=== PATIENT | female | born 1965 | race Caucasian/White ===

== ENCOUNTER → 2018-05-22 15:24 | Outpatient (CLI) | payer OTHER, MEDICAID, SELFPAY ==
--- NOTE | 2018-05-22 15:27 | DI.RAD.S_ITS ---
PROCEDURE: XR SHOULDER RT MIN 2V INDICATIONS: Right shoulder pain x1 year TECHNIQUE: 3 views of the shoulder were acquired. COMPARISON: None. FINDINGS: Bones: No fractures or dislocations. No suspicious bony lesions. Visualized ribs appear intact. Soft tissues: No suspicious soft tissue calcifications. 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 Dictated by: Amrit Hodge M.D. on 05/22/2018 at 15:48 Approved by: Amrit Hodge M.D. on 05/22/2018 at 15:48
== END ==
PROVIDERS: PCP Family Medicine; Visit Provider Family Medicine
DX: M25.511 Pain in right shoulder (principal)
CPT/HCPCS: 73030

== ENCOUNTER → 2018-06-17 13:38 | Outpatient (CLI) | payer OTHER, MEDICAID, SELFPAY ==
--- NOTE | 2018-06-17 | DI.MG.S_ITS ---
BILATERAL DIGITAL SCREENING MAMMOGRAM 3D/2D WITH CAD: 06/17/2018 CLINICAL: Routine screening. Comparison is made to exams dated: 06/23/2016 mammogram, 06/18/2015 mammogram, and 08/08/2012 mammogram - [facility]. There are scattered fibroglandular elements in both breasts. Current study was also evaluated with a Computer Aided Detection (CAD) system. There are benign calcifications in both breasts. No significant masses, calcifications, or other findings are seen in either breast. There has been no significant interval change. IMPRESSION: There is no mammographic evidence of malignancy. A 1 year screening mammogram is recommended. This exam was interpreted at Station ID: [id number]. NOTE: For mammograms, a report in lay terms will be sent to the patient. Approximately 15% of breast malignancies will not be visualized mammographically. In the management of a palpable breast mass, a negative mammogram must not discourage biopsy of a clinically suspicious lesion. Electronically Signed By: Ishmael bray/darlyn:06/17/2018 14:19:18 letter sent: Normal Exam ACR BI-RADS Category 2: Benign Finding(s) 3342F
== END ==
PROVIDERS: Family Provider Family Medicine; PCP Family Medicine; Visit Provider Family Medicine
DX: Z12.31 Encounter for screening mammogram for malignant neoplasm of breast (principal)
CPT/HCPCS: 77063; 77067

== ENCOUNTER → 2019-01-06 10:06 | Outpatient (CLI) | payer OTHER, MEDICAID, SELFPAY ==
[2019-01-06 10:31] LABS: Add Manual Diff / Slide Review NO; Basophils Absolute Auto 100 /uL (0-100); Basophils Percent Auto 1.3 % (0-2); Eosinophils Absolute Auto 200 /uL (0-450); Hematocrit 43.2 % (36-46); Lymphocytes Absolute Auto 1500 /uL (1100-4500); Lymphocytes Percent Auto 27.2 % (25-40); Mean Corpuscular HGB Conc 34.8 % (30-36); Mean Corpuscular Hemoglobin 33.2 PG (26-34); Mean Corpuscular Volume 95.6 fL (80-100); Monocytes Absolute Auto 400 /uL (0-900); Monocytes Percent Auto 7.4 % (3-14); Neutrophils Absolute Auto 3500 /uL (1500-7000); Neutrophils Percent Auto 61.1 % (50-75); Platelet Count 243 X10^3/uL (150-400); Red Blood Cell Count 4.52 X10^6/uL (4.0-5.2); Red Cell Distribution Width 12.1 % (11.6-14.8); White Blood Cell Count 5.7 X10^3/uL (4.5-11.0)
[2019-01-06 10:45] LABS: Alanine Aminotransferase 112 IU/L (9-52); Albumin 4.5 g/dL (3.5-5.0); Albumin Globulin Ratio 1.5 (1.0-2.8); Alkaline Phosphatase 102 U/L (38-126); Aspartate Aminotransferase 65 IU/L (14-36); BUN Creatinine Ratio 21.7 (6-22); Bilirubin Total 0.8 mg/dL (0.2-1.3); Blood Urea Nitrogen 13 mg/dL (7-17); Calcium 9.6 mg/dL (8.4-10.2); Carbon Dioxide 29 mmol/L (22-32); Chloride 105 mmol/L (98-107); Estimated Glomerular Filt Rate > 60.0 mL/min (>60); Globulin 3.1 g/dL (1.7-4.1); Glucose 90 mg/dL (70-100); HEMOLYSIS < 15 (0-50); Potassium 3.9 mmol/L (3.4-5.1); Sodium 143 mmol/L (137-145); Total Protein 7.6 g/dL (6.3-8.2)
[2019-01-06 11:41] LABS: TSH w/ Reflex to FT4 0.27 uIU/mL (0.47-4.68)
[2019-01-06 12:23] LABS: Free T4, Direct Thyroxine 0.76 ng/dL (0.78-2.19)
== END ==
PROVIDERS: PCP Family Medicine; Visit Provider Family Medicine
DX: N95.1 Menopausal and female climacteric states (principal); R53.83 Other fatigue; R19.7 Diarrhea, unspecified
CPT/HCPCS: 36415; 80053; 83001; 84439; 84443; 85025

== ENCOUNTER → 2019-04-23 11:54 | Outpatient (CLI) | payer OTHER, MEDICAID, SELFPAY ==
[2019-04-23 13:09] LABS: Alanine Aminotransferase 27 IU/L (<35); Albumin 4.7 g/dL (3.5-5.0); Albumin Globulin Ratio 1.7 (1.0-2.8); Alkaline Phosphatase 96 U/L (38-126); Aspartate Aminotransferase 37 IU/L (14-36); BUN Creatinine Ratio 23.3 (6-22); Bilirubin Total 0.7 mg/dL (0.2-1.3); Blood Urea Nitrogen 14 mg/dL (7-17); Calcium 10.1 mg/dL (8.4-10.2); Carbon Dioxide 25 mmol/L (22-32); Chloride 105 mmol/L (98-107); Estimated Glomerular Filt Rate > 60.0 mL/min (>60); Globulin 2.8 g/dL (1.7-4.1); Glucose 98 mg/dL (70-100); HEMOLYSIS < 15 (0-50); Potassium 4.2 mmol/L (3.4-5.1); Sodium 140 mmol/L (137-145); Total Protein 7.5 g/dL (6.3-8.2)
[2019-04-23 13:38] LABS: TSH w/ Reflex to FT4 2.88 uIU/mL (0.47-4.68)
== END ==
PROVIDERS: PCP Family Medicine; Visit Provider Family Medicine
DX: R74.8 Abnormal levels of other serum enzymes (principal); R94.6 Abnormal results of thyroid function studies
CPT/HCPCS: 36415; 80053; 84443

== ENCOUNTER → 2020-02-16 17:21 | Outpatient (CLI) | payer OTHER, MEDICAID, SELFPAY ==
--- NOTE | 2020-02-16 | DI.MG.S_ITS ---
BILATERAL DIGITAL SCREENING MAMMOGRAM 3D/2D WITH CAD: 02/16/2020 CLINICAL: Routine screening. Comparison is made to exams dated: 06/17/2018 mammogram, 06/23/2016 mammogram, and 06/18/2015 mammogram - [facility]. There are scattered fibroglandular elements in both breasts. Current study was also evaluated with a Computer Aided Detection (CAD) system. There are benign calcifications in both breasts. No significant masses, calcifications, or other findings are seen in either breast. There has been no significant interval change. IMPRESSION: BENIGN There is no mammographic evidence of malignancy. A 1 year screening mammogram is recommended. This exam was interpreted at Station ID: [id number]. NOTE: For mammograms, a report in lay terms will be sent to the patient. Approximately 15% of breast malignancies will not be visualized mammographically. In the management of a palpable breast mass, a negative mammogram must not discourage biopsy of a clinically suspicious lesion. Electronically Signed By: Saeid lyman/darlyn:02/16/2020 17:52:04 letter sent: Normal Exam ACR BI-RADS Category 2: Benign Finding(s) 3342F
== END ==
PROVIDERS: PCP Family Medicine; Referring Provider Family Medicine; Visit Provider Family Medicine
DX: Z12.31 Encounter for screening mammogram for malignant neoplasm of breast (principal)
CPT/HCPCS: 77063; 77067

== ENCOUNTER → 2020-03-25 11:28 | Outpatient (CLI) | payer OTHER, MEDICAID, SELFPAY ==
[2020-03-25 13:29] LABS: Alanine Aminotransferase 23 IU/L (<35); Albumin 4.7 g/dL (3.5-5.0); Albumin Globulin Ratio 1.6 (1.0-2.8); Alkaline Phosphatase 107 U/L (38-126); Aspartate Aminotransferase 31 IU/L (14-36); BUN Creatinine Ratio 25.4 (6-22); Bilirubin Total 0.9 mg/dL (0.2-1.3); Blood Urea Nitrogen 16 mg/dL (7-17); Calcium 9.9 mg/dL (8.4-10.2); Carbon Dioxide 30 mmol/L (22-32); Chloride 106 mmol/L (98-107); Cholesterol 236 mg/dL (140-199); Estimated Glomerular Filt Rate > 60.0 mL/min (>60); Glucose 103 mg/dL (70-100); HDL Cholesterol 61 mg/dL (40-60); HEMOLYSIS < 15 (0-50); LDL Cholesterol Calculated 149 mg/dL (<100); Potassium 4.8 mmol/L (3.4-5.1); Sodium 140 mmol/L (137-145); Total Protein 7.7 g/dL (6.3-8.2); Triglycerides 132 mg/dL (35-150)
== END ==
PROVIDERS: PCP Family Medicine; Referring Provider Family Medicine; Visit Provider Family Medicine
DX: I10 Essential (primary) hypertension (principal); K76.0 Fatty (change of) liver, not elsewhere classified; Z13.220 Encounter for screening for lipoid disorders
CPT/HCPCS: 36415; 80053; 80061

== ENCOUNTER → 2020-06-11 15:39 | Outpatient (CLI) | payer OTHER, MEDICAID, SELFPAY ==
[2020-06-11] MEDS: COVID-19 VACC #1, MRNA(MOD) 100 MCG/0.5 ML VIAL IM (15:46)
== END ==
PROVIDERS: PCP Family Medicine; Visit Provider Internal Medicine
DX: Z23 Encounter for immunization (principal)
CPT/HCPCS: 0011A; 91301

== ENCOUNTER → 2020-07-09 15:52 | Outpatient (CLI) | payer OTHER, MEDICAID, SELFPAY ==
[2020-07-09] MEDS: COVID-19 VACC #2, MRNA(MOD) 100 MCG/0.5 ML VIAL IM (16:06)
== END ==
PROVIDERS: PCP Family Medicine; Visit Provider Internal Medicine
DX: Z23 Encounter for immunization (principal)
CPT/HCPCS: 0012A; 91301

== ENCOUNTER 2020-08-12 13:09 | Emergency (ER) | payer OTHER, MEDICAID, SELFPAY ==
[2020-08-12 13:11] VITALS: BP 174/92; PULSE 95; RESP 22; TEMP 36.4; O2SAT 98; BMI 24.0
--- NOTE | 2020-08-12 13:16 | DI.RAD.S_ITS ---
PROCEDURE: XR CHEST 1V INDICATIONS: chest pain TECHNIQUE: One view of the chest was acquired. COMPARISON: None. FINDINGS: Surgical changes and devices: None. Lungs and pleura: Lungs are clear. No pleural effusions or pneumothorax. Mediastinum: Mediastinal contours appear normal. Heart size is normal. Bones and chest wall: No suspicious bony lesions. Overlying soft tissues appear unremarkable. IMPRESSION: Normal for age, source of current chest pain symptoms is not seen. Dictated by: Amrit Hodge M.D. on 08/12/2020 at 13:47 Approved by: Amrit Hodge M.D. on 08/12/2020 at 13:48
--- NOTE | 2020-08-12 13:45 | ED.CHESTPAIN ---
HPI - Chest Pain General Chief Complaint: Chest Pain Stated Complaint: chest pain,shortness of breath Time Seen by Provider: 08/12/20 13:45 Source: patient Mode of arrival: Ambulatory Limitations: no limitations History of Present Illness HPI narrative: 54-year-old woman with mild asthma presents with 2 weeks of fatigue, dizziness, heaviness in the chest, rapid heart rate, exertional dyspnea that she describes as different from any asthma type symptoms. Excessive fatigue and a sense of brain fogginess. She has had no fevers or chills. She had her 2nd COVID vaccine on July 09 and does not believe she has actually had COVID per se. Family history is significant for cardiac disease in her mother lung cancer in her father who was a heavy smoker. She herself does not smoke. She has not noticed any change to bowel or bladder habits. Notices that the symptoms may be worse after eating but this certainly is not conclusive. Related Data Home Medications Medication Instructions Recorded Confirmed folic acid 1 mg tablet 1 mg PO DAILY 01/18/18 08/12/20 Previous Rx's Medication Instructions Recorded albuterol sulfate 90 mcg/actuation 2 puff INHALATION Q4HP PRN #1 inh 01/06/19 aerosol inhaler Allergies Allergy/AdvReac Type Severity Reaction Status Date / Time Sulfa (Sulfonamide Allergy Severe RASH ALL Verified 08/12/20 13:15 Antibiotics) OVER BODY [SULFA (SULFONAMIDE ANTIBIOTICS)] Review of Systems Review of Systems Narrative: Remainder of review of systems including constitutional, ENT, cardiovascular, respiratory, GI, , musculoskeletal, skin, neurologic and psychiatric systems reviewed and are unremarkable except as noted in HPI. Patient History Medical History (Updated 08/12/20 @ 15:48 by Paula Velasquez MD) Asthma (~2009) Chicken pox (~1987) Foot pain (~2009) Hypertension Migraines (~1989) Mumps (~1971) Plantar fasciitis, bilateral Surgical History Anesthesia History of foot surgery (~01/2012) Family History Grandmother Cancer Mother Age: 71 Heart disease High cholesterol Grandfather Cancer Heart disease Sister Age: 51 Desmoplastic melanoma, malignant Father Cancer Grandfather No problems noted. Social History marital status: number of children: 4 household members: other lives independently: Yes education level: college occupational status: employed and student Smoking Status: Never smoker alcohol intake: current (rare/social) substance use type: does not use Smoking Status: Never smoker alcohol intake frequency: 0-2 drinks per day Substance Use Type: does not use Exam Narrative Exam Narrative: General: Healthy appearing, in no acute distress. Able to give a complete and coherent history. Well-nourished well-developed HEENT: Moist mucous membranes, normal sclera with reactive pupils, Neck: supple Respiratory: Lungs are clear to auscultation, no wheezing no rales no rhonchi. Full and symmetrical air movement Cardiac: Regular rate and rhythm no murmurs no bruits Abdomen: Soft, mild tenderness in the right upper quadrant without rebound or guarding, good bowel tones, no flank pain Skin: Warm and dry, no rashes Neurologic: Grossly neurologically intact with no obvious asymmetries or abnormalities Extremities: No trauma, well perfused Psych: Cooperative, appropriate insight and affect Initial Vital Signs Initial Vital Signs: Vital Signs Temperature 97.5 F L 08/12/20 13:11 Pulse Rate 95 H 08/12/20 13:11 Respiratory Rate 22 08/12/20 13:11 Blood Pressure 174/92 H 08/12/20 13:11 Pulse Oximetry 98 08/12/20 13:11 Course Orders Ordered: ED Orders 08/12/20 13:16 XR chest 1V Stat EKG-12 Lead Stat 08/12/20 13:37 Complete Blood Count AUTO DIFF Stat Comprehensive Metabolic Panel Stat D Dimer Stat Lipase Stat Magnesium Stat Partial Thromboplastin Time Stat Prothrombin Time INR Stat Troponin & CK Cardiac Panel Stat 08/12/20 14:50 CT abdomen pelvis w con Stat Vital Signs Vital signs: Vital Signs - 8 hr 08/12/20 13:11 08/12/20 13:54 08/12/20 14:00 Temperature 97.5 F L Pulse Rate 95 H 79 79 Respiratory Rate 22 13 23 Blood Pressure 174/92 H 153/82 H Pulse Oximetry 98 99 99 08/12/20 14:30 Temperature Pulse Rate 76 Respiratory Rate 16 Blood Pressure 158/74 H Pulse Oximetry 99 MDM - Chest Pain Medical Records Data Attestation: I reviewed the patient's medical records. Lab Data Attestation: I reviewed the patient's lab results. Result diagrams: 08/12/20 13:37 08/12/20 13:37 Labs: Lab Results 08/12/20 08/12/20 08/12/20 Range/Units 13:37 13:37 13:37 WBC 8.2 (4.5-11.0) X10^3/uL RBC 4.56 (4.0-5.2) X10^6/uL Hgb 15.0 (12.0-16.0) g/dL Hct 43.0 (36-46) % MCV 94.4 (80-100) fL MCH 32.9 (26-34) PG MCHC 34.8 (30-36) % RDW 12.2 (11.6-14.8) % Plt Count 197 (150-400) X10^3/uL Neut % (Auto) 51.5 (50-75) % Lymph % (Auto) 26.3 (25-40) % Freestone % (Auto) 4.7 (3-14) % Eos % (Auto) 16.1 H (2-4) % Baso % (Auto) 1.4 (0-2) % Neut # (Auto) 4200 (0433-5084) /uL Lymph # (Auto) 2200 (7366-1301) /uL Freestone # (Auto) 400 (0-900) /uL Eos # (Auto) 1300 H (0-450) /uL Baso # (Auto) 100 (0-100) /uL PT 12.1 (10.1-12.7) SECONDS INR 1.1 (0.9-1.3) APTT 34 (26.4-36.2) SECONDS D-Dimer (<230) ng/mL Sodium 140 (137-145) mmol/L Potassium 3.6 (3.4-5.1) mmol/L Chloride 105 (98-107) mmol/L Carbon Dioxide 27 (22-32) mmol/L BUN 11 (7-17) mg/dL Creatinine 0.58 (0.52-1.04) mg/dL Estimated GFR > 60.0 (>60) mL/min BUN/Creatinine Ratio 19.0 (6-22) Glucose 104 H (70-100) mg/dL Calcium 9.7 (8.4-10.2) mg/dL Magnesium 2.0 (1.6-2.3) mg/dL Total Bilirubin 0.7 (0.2-1.3) mg/dL AST 30 (14-36) IU/L ALT 20 (<35) IU/L Alkaline Phosphatase 129 H (38-126) U/L Total Creatine Kinase 112 (30-135) U/L CK-MB (CK-2) 2.38 H (<2.37) ng/mL CK-MB (CK-2) Rel Index 2.1 (1.5-5.0) % Troponin I < 0.012 (0.01-0.034) ng/mL Total Protein 7.6 (6.3-8.2) g/dL Albumin 4.7 (3.5-5.0) g/dL Globulin 2.9 (1.7-4.1) g/dL Albumin/Globulin Ratio 1.6 (1.0-2.8) Lipase 423 H (23-300) U/L 03/25/21 Range/Units 13:37 WBC (4.5-11.0) X10^3/uL RBC (4.0-5.2) X10^6/uL Hgb (12.0-16.0) g/dL Hct (36-46) % MCV (80-100) fL MCH (26-34) PG MCHC (30-36) % RDW (11.6-14.8) % Plt Count (150-400) X10^3/uL Neut % (Auto) (50-75) % Lymph % (Auto) (25-40) % Freestone % (Auto) (3-14) % Eos % (Auto) (2-4) % Baso % (Auto) (0-2) % Neut # (Auto) (3996-5244) /uL Lymph # (Auto) (9874-2486) /uL Freestone # (Auto) (0-900) /uL Eos # (Auto) (0-450) /uL Baso # (Auto) (0-100) /uL PT (10.1-12.7) SECONDS INR (0.9-1.3) APTT (26.4-36.2) SECONDS D-Dimer < 230 (<230) ng/mL Sodium (137-145) mmol/L Potassium (3.4-5.1) mmol/L Chloride (98-107) mmol/L Carbon Dioxide (22-32) mmol/L BUN (7-17) mg/dL Creatinine (0.52-1.04) mg/dL Estimated GFR (>60) mL/min BUN/Creatinine Ratio (6-22) Glucose (70-100) mg/dL Calcium (8.4-10.2) mg/dL Magnesium (1.6-2.3) mg/dL Total Bilirubin (0.2-1.3) mg/dL AST (14-36) IU/L ALT (<35) IU/L Alkaline Phosphatase (38-126) U/L Total Creatine Kinase (30-135) U/L CK-MB (CK-2) (<2.37) ng/mL CK-MB (CK-2) Rel Index (1.5-5.0) % Troponin I (0.01-0.034) ng/mL Total Protein (6.3-8.2) g/dL Albumin (3.5-5.0) g/dL Globulin (1.7-4.1) g/dL Albumin/Globulin Ratio (1.0-2.8) Lipase (23-300) U/L Imaging Data Chest x-ray: Radiologist's Impression: COMPARISON: None. FINDINGS: Surgical changes and devices: None. Lungs and pleura: Lungs are clear. No pleural effusions or pneumothorax. Mediastinum: Mediastinal contours appear normal. Heart size is normal. Bones and chest wall: No suspicious bony lesions. Overlying soft tissues appear unremarkable. IMPRESSION: Normal for age, source of current chest pain symptoms is not seen. Dictated by: Amrit Hodge M.D. on 08/12/2020 at 13:47 CT scan - abdomen/pelvis: Radiologist's Impression: FINDINGS: Image quality: Excellent. ABDOMEN: Lung bases: Lung bases are clear. Heart size is normal. Solid organs: Liver is normal in size and enhancement. Gallbladder is unremarkable. Biliary system is non dilated. Pancreas enhances normally. No CT findings of acute pancreatitis. Spleen is normal in size and enhancement. No adrenal nodules. Kidneys demonstrate normal size and enhancement, without hydronephrosis. Peritoneum and bowel: Bowel loops demonstrate normal wall thickness and caliber. No free fluid or air. Nodes and vessels: No retroperitoneal or mesenteric adenopathy by size criteria. Aorta and inferior vena cava are normal in size. Miscellaneous: No ventral hernias. PELVIS: Genitourinary: Bladder wall thickness is normal. Miscellaneous: No inguinal hernias or adenopathy. There is a central uterine mass measuring approximately 2.9 x 2.4 cm, which likely represents a submucosal posterior uterine fibroid. However, cannot exclude an endometrial mass. Bones: No suspicious bony lesions. No vertebral body compression fractures. IMPRESSION: 1. No CT findings of acute pancreatitis. 2. No evidence of biliary obstruction. 3. A central uterine mass, likely represents a submucosal fibroid off the posterior wall measuring 2.4 x 2.9 cm. However, cannot exclude an endometrial mass. Therefore, recommend pelvic ultrasound if the patient has not had a recent pelvic ultrasound. Dictated by: Yuan Salmon M.D. on 08/12/2020 at 15:14 ECG Data Attestation: I personally reviewed and interpreted this ECG as follows: Interpretation: Sinus rhythm at a rate of 84 Normal axis, normal intervals No acute ischemic changes MDM Narrative Medical decision making narrative: With history of 2 weeks of exertional dyspnea, fatigue, chest heaviness and brain fog. Lab work is reassuring with normal CBC no suggestion of infection or significant anemia. D-dimer is Low so pulmonary embolism is not likely. Lipase and alkaline phosphatase are both slightly elevated. Given her interesting constellation of symptoms Ho ahead and do a CT scan to make sure there isn't significant upper abdominal or pancreatic pathology. If all of this workup is unremarkable a next step may be outpatient cardiac stress testing. CT scan is unremarkable. There is likely a fibroid appreciated on the CT scan however further follow-up to make sure it is not an endometrial mass is been recommended by radiology. No obvious explanations for the malaise an abnormality she has been experiencing. Will have her follow-up with her primary care physician and likely will benefit from outpatient cardiac stress testing. There is no evidence of acute coronary syndrome or reason for hospital admission at this time. She is safe for home discharge Discharge Plan Departure Patient Disposition: Home Clinical Impression: Acute dyspnea Fatigue Qualifiers: Fatigue type: unspecified Qualified Code(s): R53.83 - Other fatigue Instructions: DI for Shortness of Breath Activity Restrictions/Additional Instructions: Thank you for coming in today Your symptoms certainly sound concerning. Fortunately, your workup today has not shown any life-threatening etiology. There is no evidence of heart attack or heart attack like syndrome, blood clots, lung infections masses or tumors, your CT scan of your abdomen is reassuring. There is no evidence of overwhelming infection or significant anemia. You likely have a uterine fibroid however that is difficult to fully confirm on CT scan so this may need some follow-up in the future. Please keep your appointment in a week with Dr. Weinstein. If you are still having symptoms at that point, she may choose to pursue an outpatient cardiac workup. If you feel that you are getting worse, please feel free to return to the ER Prescriptions: No Action albuterol sulfate [Ventolin HFA] 90 mcg/actuation HFA aerosol inhaler 2 puff INHALATION Q4HP PRN (Reason: shortness of breath or wheezing) Qty: 1 RF: 2 folic acid 1 mg tablet 1 mg PO DAILY RF: 0 Referrals: Katja Weinstein DO [Primary Care Provider] -
[2020-08-12 13:50] LABS: Add Manual Diff / Slide Review NO; Basophils Absolute Auto 100 /uL (0-100); Basophils Percent Auto 1.4 % (0-2); Eosinophils Absolute Auto 1300 /uL (0-450); Eosinophils Percent Auto 16.1 % (2-4); Lymphocytes Absolute Auto 2200 /uL (1100-4500); Lymphocytes Percent Auto 26.3 % (25-40); Mean Corpuscular HGB Conc 34.8 % (30-36); Mean Corpuscular Hemoglobin 32.9 PG (26-34); Mean Corpuscular Volume 94.4 fL (80-100); Monocytes Absolute Auto 400 /uL (0-900); Monocytes Percent Auto 4.7 % (3-14); Neutrophils Absolute Auto 4200 /uL (1500-7000); Neutrophils Percent Auto 51.5 % (50-75); Platelet Count 197 X10^3/uL (150-400); Red Blood Cell Count 4.56 X10^6/uL (4.0-5.2); Red Cell Distribution Width 12.2 % (11.6-14.8); White Blood Cell Count 8.2 X10^3/uL (4.5-11.0)
[2020-08-12 13:54] VITALS: PULSE 79; RESP 13; O2SAT 99
[2020-08-12 14:00] VITALS: BP 153/82; PULSE 79; RESP 23; O2SAT 99
[2020-08-12 14:01] LABS: INR 1.1 (0.9-1.3); Prothrombin Time 12.1 SECONDS (10.1-12.7)
[2020-08-12 14:03] LABS: Alanine Aminotransferase 20 IU/L (<35); Albumin 4.7 g/dL (3.5-5.0); Albumin Globulin Ratio 1.6 (1.0-2.8); Alkaline Phosphatase 129 U/L (38-126); Aspartate Aminotransferase 30 IU/L (14-36); Bilirubin Total 0.7 mg/dL (0.2-1.3); Blood Urea Nitrogen 11 mg/dL (7-17); Calcium 9.7 mg/dL (8.4-10.2); Carbon Dioxide 27 mmol/L (22-32); Chloride 105 mmol/L (98-107); Creatine Kinase 112 U/L (30-135); Estimated Glomerular Filt Rate > 60.0 mL/min (>60); Globulin 2.9 g/dL (1.7-4.1); Glucose 104 mg/dL (70-100); HEMOLYSIS < 15 (0-50); Lipase 423 U/L (23-300); Potassium 3.6 mmol/L (3.4-5.1); Sodium 140 mmol/L (137-145); Total Protein 7.6 g/dL (6.3-8.2)
[2020-08-12 14:04] LABS: PTT Partial Thromboplastin Tim 34 SECONDS (26.4-36.2)
[2020-08-12 14:11] LABS: D Dimer < 230 ng/mL (<230)
[2020-08-12 14:12] LABS: Troponin I < 0.012 ng/mL (0.01-0.034)
[2020-08-12 14:18] LABS: CKMB % Relative Index 2.1 % (1.5-5.0); Creatine Kinase MB 2.38 ng/mL (<2.37)
[2020-08-12 14:30] VITALS: BP 158/74; PULSE 76; RESP 16; O2SAT 99
--- NOTE | 2020-08-12 14:50 | DI.CT.S_ITS ---
PROCEDURE: CT ABDOMEN PELVIS W CON INDICATIONS: fatigue, elevated lipase and alk phos TECHNIQUE: After the administration of intravenous contrast, 5 mm thick sections acquired from the diaphragm to the symphysis. 5 mm coronal and sagittal reformats were acquired. For radiation dose reduction, the following was used: automated exposure control, adjustment of mA and/or kV according to patient size. COMPARISON: None. FINDINGS: Image quality: Excellent. ABDOMEN: Lung bases: Lung bases are clear. Heart size is normal. Solid organs: Liver is normal in size and enhancement. Gallbladder is unremarkable. Biliary system is non dilated. Pancreas enhances normally. No CT findings of acute pancreatitis. Spleen is normal in size and enhancement. No adrenal nodules. Kidneys demonstrate normal size and enhancement, without hydronephrosis. Peritoneum and bowel: Bowel loops demonstrate normal wall thickness and caliber. No free fluid or air. Nodes and vessels: No retroperitoneal or mesenteric adenopathy by size criteria. Aorta and inferior vena cava are normal in size. Miscellaneous: No ventral hernias. PELVIS: Genitourinary: Bladder wall thickness is normal. Miscellaneous: No inguinal hernias or adenopathy. There is a central uterine mass measuring approximately 2.9 x 2.4 cm, which likely represents a submucosal posterior uterine fibroid. However, cannot exclude an endometrial mass. Bones: No suspicious bony lesions. No vertebral body compression fractures. IMPRESSION: 1. No CT findings of acute pancreatitis. 2. No evidence of biliary obstruction. 3. A central uterine mass, likely represents a submucosal fibroid off the posterior wall measuring 2.4 x 2.9 cm. However, cannot exclude an endometrial mass. Therefore, recommend pelvic ultrasound if the patient has not had a recent pelvic ultrasound. Dictated by: Yuan Salmon M.D. on 08/12/2020 at 15:14 Approved by: Yuan Salmon M.D. on 08/12/2020 at 15:17
[2020-08-12 15:00] VITALS: BP 150/79; PULSE 79; RESP 17; O2SAT 96
== END 2020-08-12 16:09 | disposition home or self-care (01) ==
PROVIDERS: Emergency Provider Emergency Medicine; PCP Family Medicine
DX: R06.09 Other forms of dyspnea (principal); R07.9 Chest pain, unspecified; R53.83 Other fatigue
CPT/HCPCS: 36415; 71045; 74177; 80053; 82550; 82553; 83690; 83735; 84484; 85025; 85379; 85610; 85730; 93005; 93010; 99284

== ENCOUNTER → 2020-09-14 14:43 | Outpatient (CLI) | payer OTHER, MEDICAID, SELFPAY ==
--- NOTE | 2020-09-14 14:45 | DI.RAD.S_ITS ---
PROCEDURE: XR KNEE RT 3V INDICATIONS: acute R knee pain TECHNIQUE: Three views obtained. COMPARISON: None. FINDINGS: Bones: No fractures or dislocations. No suspicious bony lesions. Soft tissues: No joint effusion. No suspicious soft tissue calcifications. IMPRESSION: Normal for age, source of current acute onset right knee pain symptoms is not seen. Dictated by: Amrit Hodge M.D. on 09/14/2020 at 15:49 Approved by: Amrit Hodge M.D. on 09/14/2020 at 15:49
--- NOTE | 2020-09-14 14:45 | DI.US.S_ITS ---
PROCEDURE: US PELVIC COMPLETE INDICATIONS: uterine mass found on CT TECHNIQUE: Real-time scanning was performed of the pelvic organs, with image documentation. Additional endovaginal scanning was necessary due to incomplete visualization of the adnexal and endometrial structures by transabdominal scanning. COMPARISON: [facility], CT, CT ABDOMEN PELVIS W CON, 08/12/2020, 15:07. [facility], US, PELVIC COMPLETE, 01/22/2014, 9:01. FINDINGS: Uterus: Uterus is retroverted and normal in size at 4.2 x 4.8 x 5.1 cm. The endometrium measures 3.0 mm in combined thickness. Ovaries: Ovaries bilaterally appear normal, measuring 1.7 x 1.6 x 1.6 cm on the right and 1.8 x 1.6 x 0.8 cm on the left.. Other: No pathologic free abdominal or pelvic fluid. IMPRESSION: An endometrial mass is not seen. The endometrial lining is of normal thickness at 3 mm. Normal appearing ovaries bilaterally. Dictated by: Amrit Hodge M.D. on 09/14/2020 at 15:52 Approved by: Amrit Hodge M.D. on 09/14/2020 at 15:55
== END ==
PROVIDERS: PCP Family Medicine; Referring Provider Family Medicine; Visit Provider Family Medicine
DX: N85.8 Other specified noninflammatory disorders of uterus (principal); M25.561 Pain in right knee
CPT/HCPCS: 73562; 76830; 76856

== ENCOUNTER → 2021-03-09 16:38 | Outpatient (CLI) | payer OTHER, MEDICAID, SELFPAY ==
--- NOTE | 2021-03-09 16:40 | DI.MRI.S_ITS ---
PROCEDURE: MR KNEE RT WO/W CON INDICATIONS: effusion, suspect meniscal injury TECHNIQUE: Noncontrast sagittal PD fast spin echo and T2 fast spin echo with fat saturation, sagittal 3-D FLASH with fat saturation; coronal T1 spin echo and PD fast spin echo with fat saturation, and axial T1 spin echo and PD fast spin echo with fat saturation through the knee. Post-contrast axial, coronal, and sagittal T1 spin echo with fat saturation through the knee. COMPARISON: [facility], CR, XR KNEE RT 3V, 09/14/2020, 15:20. FINDINGS: Image quality: Excellent. Menisci: There is mild intrasubstance degeneration in the posterior horn of the medial meniscus. medial and lateral menisci demonstrate normal morphology and internal signal. The meniscal root ligaments appear intact. Cruciate ligaments: The anterior and posterior cruciate ligaments appear intact. Medial structures: The medial collateral ligament appears intact. The semimembranosus tendon insertions and meniscocapsular junction appear intact. Visualized portions of the pes anserinus tendons appear normal. No abnormal bursal fluid. Lateral structures: The lateral collateral ligament and the biceps femoris tendon appear intact. The popliteus tendon appears normal. Iliotibial band appears normal. Anterior structures: The quadriceps and patellar tendons appear intact. Patellar alignment is normal. No femoral trochlear dysplasia or ventral trochlear prominence. No edema in the infrapatellar fat pad. Bones and cartilage: No suspicious osseous enhancement. No bone marrow contusions or fractures. The cartilage of the medial and lateral femorotibial compartments, as well as the patellofemoral compartment, appears normal in thickness. Joint space: There is small knee joint fluid. There is a multilocular cyst in the superior posterior knee measuring 1.2 x 2.2 x 2.7 cm, which appears to be connected to a tiny Miranda's cyst, compatible with a synovial cyst. Normal appearing synovial plicae are incidentally noted. No suspicious soft tissue enhancement. IMPRESSION: 1. Mild intrasubstance degeneration of the posterior horn of the medial meniscus. No logan meniscal tear. 2. A 1.2 x 2.2 x 2.7 cm multilocular synovial cyst posterior superior to the knee joint, which appears to be connected to a tiny Miranda's cyst. 3. Small knee joint effusion. Dictated by: Baldomero Root M.D. on 03/10/2021 at 8:10 Approved by: Baldomero Root M.D. on 03/10/2021 at 9:00
== END ==
PROVIDERS: PCP Family Medicine; Referring Provider Family Medicine; Visit Provider Family Medicine
DX: M25.461 Effusion, right knee (principal); M71.21 Synovial cyst of popliteal space [Baker], right knee
CPT/HCPCS: 73723; A9579

== ENCOUNTER → 2021-05-26 15:32 | Outpatient (CLI) | payer OTHER, MEDICAID, SELFPAY ==
--- NOTE | 2021-05-26 15:33 | DI.MG.S_ITS ---
BILATERAL DIGITAL SCREENING MAMMOGRAM 3D/2D WITH CAD: 05/26/2021 CLINICAL: Routine screening. Comparison is made to exams dated: 02/16/2020 mammogram, 06/17/2018 mammogram, and 06/23/2016 mammogram - [facility]. There are scattered fibroglandular elements in both breasts. Current study was also evaluated with a Computer Aided Detection (CAD) system. There are benign calcifications in the right breast. No significant masses, calcifications, or other findings are seen in either breast. There has been no significant interval change. IMPRESSION: BENIGN There is no mammographic evidence of malignancy. A 1 year screening mammogram is recommended. This exam was interpreted at Station ID: [id number]. NOTE: For mammograms, a report in lay terms will be sent to the patient. Approximately 15% of breast malignancies will not be visualized mammographically. In the management of a palpable breast mass, a negative mammogram must not discourage biopsy of a clinically suspicious lesion. Electronically Signed By: Alexx Arriola acr/jorge arad:05/27/2021 11:08:21 letter sent: Normal Exam ACR BI-RADS Category 2: Benign Finding(s) 3342F
== END ==
PROVIDERS: PCP Family Medicine; Referring Provider Family Medicine; Visit Provider Family Medicine
DX: Z12.31 Encounter for screening mammogram for malignant neoplasm of breast (principal)
CPT/HCPCS: 77063; 77067

== ENCOUNTER 2021-06-02 06:14 | Emergency (ER) | payer OTHER, MEDICAID, SELFPAY ==
[2021-06-02 06:23] VITALS: BP 147/82; PULSE 102; RESP 15; TEMP 36.6; O2SAT 99; BMI 23.7
[2021-06-02 06:56] LABS: Add Manual Diff / Slide Review NO; Basophils Absolute Auto 100 /uL (0-100); Basophils Percent Auto 0.5 % (0-2); Eosinophils Absolute Auto 0 /uL (0-450); Eosinophils Percent Auto 0.3 % (2-4); Hematocrit 47.6 % (36-46); Hemoglobin 16.5 g/dL (12.0-16.0); Lymphocytes Absolute Auto 500 /uL (1100-4500); Lymphocytes Percent Auto 3.1 % (25-40); Mean Corpuscular HGB Conc 34.6 % (30-36); Mean Corpuscular Hemoglobin 32.1 PG (26-34); Mean Corpuscular Volume 92.8 fL (80-100); Monocytes Absolute Auto 500 /uL (0-900); Monocytes Percent Auto 3.1 % (3-14); Neutrophils Absolute Auto 14000 /uL (1500-7000); Platelet Count 246 X10^3/uL (150-400); Red Blood Cell Count 5.13 X10^6/uL (4.0-5.2); Red Cell Distribution Width 11.9 % (11.6-14.8)
[2021-06-02 07:10] LABS: Alanine Aminotransferase 25 IU/L (<35); Albumin 5.3 g/dL (3.5-5.0); Albumin Globulin Ratio 1.5 (1.0-2.8); Alkaline Phosphatase 105 U/L (38-126); Aspartate Aminotransferase 31 IU/L (14-36); BUN Creatinine Ratio 25.9 (6-22); Blood Urea Nitrogen 22 mg/dL (7-17); Calcium 10.5 mg/dL (8.4-10.2); Carbon Dioxide 26 mmol/L (22-32); Chloride 105 mmol/L (98-107); Estimated Glomerular Filt Rate > 60.0 mL/min (>60); Globulin 3.6 g/dL (1.7-4.1); Glucose 155 mg/dL (70-100); HEMOLYSIS < 15 (0-50); Lipase 62 U/L (23-300); Potassium 3.9 mmol/L (3.4-5.1); Sodium 141 mmol/L (137-145); Total Protein 8.9 g/dL (6.3-8.2)
[2021-06-02] MEDS: ONDANSETRON 4 MG/2 ML INJ IV (07:29)
[2021-06-02 07:36] LABS: COVID19 -Nasal RAPID Negative (Negative)
[2021-06-02 08:52] VITALS: BP 133/84; PULSE 90; RESP 18; TEMP 36.9; O2SAT 98
[2021-06-02] MEDS: SODIUM CHLORIDE 0.9% 1,000 ML 1000 ML IV ×2 (09:09→09:54)
--- NOTE | 2021-06-02 09:23 | ED.ABDPAIN ---
HPI - Abdominal Pain General Chief Complaint: Abdominal Pain Stated Complaint: d/v/n body cramping x6 hours Time Seen by Provider: 06/02/21 06:33 Source: patient Mode of arrival: Ambulatory Limitations: no limitations History of Present Illness HPI narrative: This is a 55-year-old female comes in with complaint of sudden onset of vomiting, nausea and diarrhea and cramping of her body for 6 hours starting at about midnight. Patient states no fever but felt sweaty. She has had a little shortness of breath at times but states that been going on for a while. She has asthma was out of her inhaler. She does not feel short of breath now. No chest pain or pressure. She had abdominal pain while she was vomiting having diarrhea but that is improved. No back or flank pain. No dysuria, urgency or frequency. No new vaginal bleeding or discharge. Patient has a history of asthma. She denies other medical issues. She is allergic to sulfa. Patient states that 1 of the individuals that helps care for her horses had similar symptoms that started at exactly the same time. They both had food at a restaurant. Patient is planning to travel to [facility] and is supposed to fly to [facility] and then [facility] shortly. She had a PCR test on the which was negative. She has not had any other congestive symptoms, sore throat, fevers or other changes. Related Data Home Medications Medication Instructions Recorded Confirmed folic acid 1 mg tablet 1 mg PO DAILY 01/18/18 08/20/20 Previous Rx's Medication Instructions Recorded albuterol sulfate 90 mcg/actuation 2 puff INHALATION Q4HP PRN #1 inh 06/01/21 aerosol inhaler (Ventolin HFA) ondansetron HCl 4 mg tablet 4 mg PO Q6H PRN #10 tab 06/02/21 (Zofran) Allergies Allergy/AdvReac Type Severity Reaction Status Date / Time Sulfa (Sulfonamide Allergy Severe RASH ALL Verified 08/20/20 11:10 Antibiotics) OVER BODY [SULFA (SULFONAMIDE ANTIBIOTICS)] Review of Systems Review of Systems ROS Unobtainable: All systems reviewed & are unremarkable except as noted in HPI and below Patient History Medical History Asthma (~2009) Chicken pox (~1987) Foot pain (~2009) Hypertension Migraines (~1989) Mumps (~1971) Plantar fasciitis, bilateral Surgical History Anesthesia History of foot surgery (~01/2012) Family History Grandmother Cancer Mother Age: 71 Heart disease High cholesterol Grandfather Cancer Heart disease Sister Age: 51 Desmoplastic melanoma, malignant Father Cancer Grandfather No problems noted. Social History marital status: number of children: 4 household members: other lives independently: Yes education level: college occupational status: employed and student Smoking Status: Never smoker alcohol intake: current (rare/social) substance use type: does not use Smoking Status: Never smoker alcohol intake frequency: 0-2 drinks per day Substance Use Type: does not use Exam Narrative Exam Narrative: GENERAL: Alert and oriented x three, female in mild distress. HEENT: Head normocephalic, atraumatic, EOMI, pupils reactive, face symmetric, moist mucous membranes NECK: Supple, full range of motion CARDIOVASCULAR: Regular rate and rhythm without murmurs, rubs or gallops. RESPIRATORY: Breath sounds equal bilaterally, no wheezes rales or rhonchi. ABDOMEN: Soft, nontender. Nondistended. Normoactive bowel sounds all 4 quadrants. No guarding or rebound, rigidity, no mass : No CVA tenderness EXTREMITIES: Normal range of motion, no clubbing or edema. Neurovascularly intact NEUROLOGICAL: Cranial nerves II through XII grossly intact. Moving all extremities SKIN: Warm, dry, no petechiae, no rashes or lesions. Initial Vital Signs Initial Vital Signs: Vital Signs Temperature 97.8 F 06/02/21 06:23 Pulse Rate 102 H 06/02/21 06:23 Respiratory Rate 15 06/02/21 06:23 Blood Pressure 147/82 H 06/02/21 06:23 Pulse Oximetry 99 06/02/21 06:23 Course Orders Ordered: ED Orders 06/02/21 06:50 Complete Blood Count AUTO DIFF Stat Comprehensive Metabolic Panel Stat Lipase Stat 06/02/21 07:10 COVID19 -Nasal swab/Pre-Proc Stat 06/02/21 09:50 COVID19 - ADMIT (ACCOUNT CLASSIFICATION CLERK swab/PCR) Stat 06/02/21 10:25 Urinalysis and Microscopic Stat Discontinued Medications Sodium Chloride (Normal Saline 0.9%) 1,000 mls @ 1,000 mls/hr IV BOLUS ONE Stop: 06/02/21 10:01 Last Infusion: 06/02/21 09:53 Dose: 0 mls/hr Documented by: Admin: 06/02/21 09:09 Dose: 1,000 mls/hr Documented by: YANN Sodium Chloride (Normal Saline 0.9%) 1,000 mls @ 1,000 mls/hr IV BOLUS ONE Stop: 06/02/21 10:51 Last Infusion: 06/02/21 10:58 Dose: 0 mls/hr Documented by: Admin: 06/02/21 09:54 Dose: 1,000 mls/hr Documented by: OMID Ondansetron HCl (Ondansetron 4 Mg/2 Ml Inj) 4 mg IV NOW ONE Stop: 06/02/21 07:21 Last Admin: 06/02/21 07:29 Dose: 4 mg Documented by: OMID Reevaluation(s) Reevaluation #1: On recheck patient had some ice chips which she tolerated by mouth without issue but had diarrhea shortly there after. Her vitals continue to be appropriate here. She has heart rate of 90 but not otherwise tachycardic with no other concerning vital sign changes so far. Patient is feeling a little bit better but not completely normal. We reviewed her findings. We did note that a though she is PCR negative, I do suspect food poisoning as she and her friend both had sudden onset of symptoms in a time frame fitting for food per using. But if she continues to have symptoms that would be atypical and she would likely need to be retested before travel. Time: 10:49 Vital Signs Vital signs: Vital Signs - 8 hr 06/02/21 06:23 06/02/21 08:52 06/02/21 09:59 Temperature 97.8 F 98.4 F Pulse Rate 102 H 90 94 H Respiratory Rate 15 18 18 Blood Pressure 147/82 H 133/84 149/77 H Pulse Oximetry 99 98 98 MDM - Abdominal Pain Lab Data Result diagrams: 06/02/21 06:50 06/02/21 06:50 Labs: Lab Results 06/02/21 06/02/21 06/02/21 Range/Units 06:50 06:50 07:10 WBC 15.0 H (4.5-11.0) X10^3/uL RBC 5.13 (4.0-5.2) X10^6/uL Hgb 16.5 H (12.0-16.0) g/dL Hct 47.6 H (36-46) % MCV 92.8 (80-100) fL MCH 32.1 (26-34) PG MCHC 34.6 (30-36) % RDW 11.9 (11.6-14.8) % Plt Count 246 (150-400) X10^3/uL Neut % (Auto) 93.0 H (50-75) % Lymph % (Auto) 3.1 L (25-40) % [place] % (Auto) 3.1 (3-14) % Eos % (Auto) 0.3 L (2-4) % Baso % (Auto) 0.5 (0-2) % Neut # (Auto) 98622 H (4918-1205) /uL Lymph # (Auto) 500 L (0475-3310) /uL [place] # (Auto) 500 (0-900) /uL Eos # (Auto) 0 (0-450) /uL Baso # (Auto) 100 (0-100) /uL Sodium 141 (137-145) mmol/L Potassium 3.9 (3.4-5.1) mmol/L Chloride 105 (98-107) mmol/L Carbon Dioxide 26 (22-32) mmol/L BUN 22 H (7-17) mg/dL Creatinine 0.85 (0.52-1.04) mg/dL Estimated GFR > 60.0 (>60) mL/min BUN/Creatinine Ratio 25.9 H (6-22) Glucose 155 H (70-100) mg/dL Calcium 10.5 H (8.4-10.2) mg/dL Total Bilirubin 1.0 (0.2-1.3) mg/dL AST 31 (14-36) IU/L ALT 25 (<35) IU/L Alkaline Phosphatase 105 (38-126) U/L Total Protein 8.9 H (6.3-8.2) g/dL Albumin 5.3 H (3.5-5.0) g/dL Globulin 3.6 (1.7-4.1) g/dL Albumin/Globulin Ratio 1.5 (1.0-2.8) Lipase 62 (23-300) U/L Urine Color Urine Appearance Urine pH (4.5-8.0) Ur Specific [place] (1.000-1.035) Urine Protein (Negative) Urine Glucose (UA) (Negative) g/dL Urine Ketones (NEGATIVE) Urine Occult Blood (Negative) Urine Nitrate (Negative) Urine Bilirubin (NEGATIVE) Urine Urobilinogen (0.2) E.U./dL Ur Leukocyte Esterase (NEGATIVE) Urine RBC (0-5/HPF) Urine WBC (0-5/HPF) Urine Bacteria (None) Hyaline Casts (None) Urine Mucus (Negative) Ur Culture Indicated? SARS-CoV-2 (PCR) Negative (Negative) 06/02/21 06/02/21 Range/Units 09:50 10:25 WBC (4.5-11.0) X10^3/uL RBC (4.0-5.2) X10^6/uL Hgb (12.0-16.0) g/dL Hct (36-46) % MCV (80-100) fL MCH (26-34) PG MCHC (30-36) % RDW (11.6-14.8) % Plt Count (150-400) X10^3/uL Neut % (Auto) (50-75) % Lymph % (Auto) (25-40) % [place] % (Auto) (3-14) % Eos % (Auto) (2-4) % Baso % (Auto) (0-2) % Neut # (Auto) (5653-0224) /uL Lymph # (Auto) (1119-1053) /uL [place] # (Auto) (0-900) /uL Eos # (Auto) (0-450) /uL Baso # (Auto) (0-100) /uL Sodium (137-145) mmol/L Potassium (3.4-5.1) mmol/L Chloride (98-107) mmol/L Carbon Dioxide (22-32) mmol/L BUN (7-17) mg/dL Creatinine (0.52-1.04) mg/dL Estimated GFR (>60) mL/min BUN/Creatinine Ratio (6-22) Glucose (70-100) mg/dL Calcium (8.4-10.2) mg/dL Total Bilirubin (0.2-1.3) mg/dL AST (14-36) IU/L ALT (<35) IU/L Alkaline Phosphatase (38-126) U/L Total Protein (6.3-8.2) g/dL Albumin (3.5-5.0) g/dL Globulin (1.7-4.1) g/dL Albumin/Globulin Ratio (1.0-2.8) Lipase (23-300) U/L Urine Color Yellow Urine Appearance Clear Urine pH 5.5 (4.5-8.0) Ur Specific [place] 1.020 (1.000-1.035) Urine Protein Trace H (Negative) Urine Glucose (UA) Negative (Negative) g/dL Urine Ketones Trace H (NEGATIVE) Urine Occult Blood Negative (Negative) Urine Nitrate Negative (Negative) Urine Bilirubin Negative (NEGATIVE) Urine Urobilinogen 0.2 (0.2) E.U./dL Ur Leukocyte Esterase Negative (NEGATIVE) Urine RBC None seen (0-5/HPF) Urine WBC None seen (0-5/HPF) Urine Bacteria None seen (None) Hyaline Casts 1-5/lpf (None) Urine Mucus 4+ H (Negative) Ur Culture Indicated? Cult not indicated SARS-CoV-2 (PCR) Negative (Negative) Point of care testing: Point of Care Testing Test Results Negative Urine Dip Bedside Urine Glucose Negative Bedside Urine Bilirubin + 1 Bedside Urine Ketone +/- 5 Urine Specific [place] 1.025 Bedside Urine Occult Blood - Negative Bedside Urine pH 6.0 Bedside Urine Protein + 30 Bedside Urine Urobilinogen - Negative Bedside Urine Nitrite - Negative Bedside Urine Leukocytes - Negative Esterase MDM Narrative Medical decision making narrative: This is a 55-year-old female comes in with sudden onset of vomiting and diarrhea with as well as abdominal pain. Patient's exam findings are reassuring and imaging was deferred. is improved now that she is no longer vomiting. Her vomiting has not been persistent at this point in the department. She has had 1 additional episode of diarrhea after having oral hydration. Patient did have ketones, white count elevation her BUN. Her physical exam was reassuring and imaging was deferred. Patient had rapid P COVID which was negative and PCR was obtained as well. All questions answered. Patient was encouraged to return if she has worsening symptoms. Short course of Zofran given for nausea. Discharge Plan Departure Patient Disposition: Home Clinical Impression: Abdominal pain, vomiting, and diarrhea Instructions: DI for Vomiting -- Adult Activity Restrictions/Additional Instructions: I suspect that you likely have food poisoning, specially considering the other individual with you had exact same onset of symptoms. Your COVID swab rapid as well as PCR is negative today. Please know if you develop fevers, have persistent symptoms or new symptoms you should be retested. You may take Zofran 1 tablet every 6 hours as needed for nausea. Prescription sent to [facility] in [place]. Please return for fevers, worsening abdominal, back or flank pain, persistent vomiting, black or bloody stools or other new or concerning symptoms. Prescriptions: New ondansetron HCl [Zofran] 4 mg tablet 4 mg PO Q6H PRN (Reason: nausea and vomiting) Qty: 10 0RF No Action albuterol sulfate [Ventolin HFA] 90 mcg/actuation HFA aerosol inhaler 2 puff INHALATION Q4HP PRN (Reason: shortness of breath or wheezing) Qty: 1 2RF folic acid 1 mg tablet 1 mg PO DAILY 0RF Referrals: Katja Weinstein DO [Primary Care Provider] -
[2021-06-02 09:59] VITALS: BP 149/77; PULSE 94; RESP 18; O2SAT 98
[2021-06-02 10:39] LABS: Appearance Urine UA CLEAR; Bilirubin Urine UA NEGATIVE (NEGATIVE); Color Urine UA YELLOW; Glucose Urine UA NEGATIVE (Negative); Ketones Urine UA TRACE (NEGATIVE); Leukocyte Esterase Urine UA NEGATIVE (NEGATIVE); Nitrite Urine UA NEGATIVE (Negative); Occult Blood Urine UA NEGATIVE (Negative); Protein Urine UA TRACE (Negative); Urobilinogen Urine UA 0.2 E.U./dL (0.2)
[2021-06-02 10:40] LABS: pH Urine UA 5.5 (4.5-8.0)
[2021-06-02 10:41] LABS: COVID19 - ADMIT (NP swab/PCR) Negative (Negative)
[2021-06-02 10:45] LABS: RBC Urine None Seen (0-5/HPF); WBC Urine None Seen (0-5/HPF)
[2021-06-02 10:46] LABS: Bacteria Urine None Seen; Culture Indicated Urine Cult Not Indicated; Hyaline Casts Urine 1-5/LPF; Mucus Urine 4+ (Negative)
== END 2021-06-02 11:45 | disposition home or self-care (01) ==
PROVIDERS: Emergency Medicine; Emergency Provider Emergency Medicine; PCP Family Medicine
DX: R10.9 Unspecified abdominal pain (principal); R11.2 Nausea with vomiting, unspecified; R19.7 Diarrhea, unspecified; Z20.822 Contact with and (suspected) exposure to COVID-19
CPT/HCPCS: 36415; 80053; 81001; 81003; 81025; 83690; 85025; 87635; 96361; 96374; 99284; C9803; J2405

== ENCOUNTER → 2022-05-04 11:33 | Outpatient (CLI) | payer OTHER, MEDICAID, SELFPAY ==
[2022-05-04 13:35] LABS: Add Manual Diff / Slide Review NO; Basophils Absolute Auto 100 /uL (0-100); Eosinophils Absolute Auto 200 /uL (0-450); Eosinophils Percent Auto 3.5 % (2-4); Hematocrit 42.4 % (36-46); Hemoglobin 14.6 g/dL (12.0-16.0); Lymphocytes Absolute Auto 1900 /uL (1100-4500); Lymphocytes Percent Auto 29.4 % (25-40); Mean Corpuscular HGB Conc 34.5 % (30-36); Mean Corpuscular Hemoglobin 32.7 PG (26-34); Mean Corpuscular Volume 94.8 fL (80-100); Monocytes Absolute Auto 500 /uL (0-900); Monocytes Percent Auto 6.9 % (3-14); Neutrophils Absolute Auto 3900 /uL (1500-7000); Neutrophils Percent Auto 59.2 % (50-75); Platelet Count 207 X10^3/uL (150-400); Red Blood Cell Count 4.48 X10^6/uL (4.0-5.2); Red Cell Distribution Width 12.4 % (11.6-14.8); White Blood Cell Count 6.5 X10^3/uL (4.5-11.0)
[2022-05-04 13:59] LABS: Alanine Aminotransferase 94 IU/L (<35); Albumin 4.3 g/dL (3.5-5.0); Albumin Globulin Ratio 1.3 (1.0-2.8); Alkaline Phosphatase 97 U/L (38-126); Aspartate Aminotransferase 63 IU/L (14-36); BUN Creatinine Ratio 20.3 (6-22); Bilirubin Total 0.8 mg/dL (0.2-1.3); Blood Urea Nitrogen 12 mg/dL (7-17); Carbon Dioxide 24 mmol/L (22-32); Chloride 105 mmol/L (98-107); Cholesterol 230 mg/dL (140-199); Estimated Glomerular Filt Rate > 60 mL/min (>60); Globulin 3.2 g/dL (1.7-4.1); Glucose 105 mg/dL (70-100); HDL Cholesterol 45 mg/dL (40-60); HEMOLYSIS < 15 (0-50); LDL Cholesterol Calculated 143 mg/dL (<100); Sodium 140 mmol/L (137-145); Total Protein 7.5 g/dL (6.3-8.2); Triglycerides 212 mg/dL (35-150)
[2022-05-04 14:29] LABS: TSH w/ Reflex to FT4 0.13 uIU/mL (0.47-4.68)
[2022-05-04 15:43] LABS: Free T4, Direct Thyroxine 1.27 ng/dL (0.78-2.19)
== END ==
PROVIDERS: PCP Family Medicine; Referring Provider Family Medicine; Visit Provider Family Medicine
DX: R63.5 Abnormal weight gain; I10 Essential (primary) hypertension; Z13.220 Encounter for screening for lipoid disorders
CPT/HCPCS: 36415; 80053; 80061; 84439; 84443; 85025

== ENCOUNTER → 2022-09-27 13:09 | Outpatient (CLI) | payer OTHER, MEDICAID, SELFPAY ==
[2022-09-27 14:52] LABS: Add Manual Diff / Slide Review NO; Basophils Absolute Auto 0 /uL (0-100); Basophils Percent Auto 0.5 % (0-2); Eosinophils Absolute Auto 100 /uL (0-450); Hemoglobin 14.7 g/dL (12.0-16.0); Lymphocytes Absolute Auto 700 /uL (1100-4500); Lymphocytes Percent Auto 19.9 % (25-40); Mean Corpuscular HGB Conc 35.1 % (30-36); Mean Corpuscular Hemoglobin 33.2 PG (26-34); Mean Corpuscular Volume 94.7 fL (80-100); Monocytes Absolute Auto 200 /uL (0-900); Monocytes Percent Auto 6.3 % (3-14); Neutrophils Absolute Auto 2600 /uL (1500-7000); Neutrophils Percent Auto 69.3 % (50-75); Platelet Count 133 X10^3/uL (150-400); Red Blood Cell Count 4.44 X10^6/uL (4.0-5.2); Red Cell Distribution Width 12.8 % (11.6-14.8); White Blood Cell Count 3.7 X10^3/uL (4.5-11.0)
[2022-09-27 15:22] LABS: Alanine Aminotransferase 110 IU/L (<35); Albumin 4.3 g/dL (3.5-5.0); Albumin Globulin Ratio 1.4 (1.0-2.8); Alkaline Phosphatase 105 U/L (38-126); Aspartate Aminotransferase 78 IU/L (14-36); BUN Creatinine Ratio 16.2 (6-22); Bilirubin Total 0.6 mg/dL (0.2-1.3); Blood Urea Nitrogen 12 mg/dL (7-17); Calcium 9.2 mg/dL (8.4-10.2); Carbon Dioxide 26 mmol/L (22-32); Chloride 103 mmol/L (98-107); Estimated Glomerular Filt Rate > 60 mL/min (>60); Glucose 114 mg/dL (70-100); HEMOLYSIS < 15 (0-50); Sodium 139 mmol/L (137-145); Total Protein 7.3 g/dL (6.3-8.2)
== END ==
PROVIDERS: PCP Family Medicine; Referring Provider Nurse Practitioner Family; Visit Provider Nurse Practitioner Family
DX: R19.7 Diarrhea, unspecified (principal)
CPT/HCPCS: 36415; 80053; 81002; 85025; 87880

== ENCOUNTER → 2022-10-05 13:31 | Outpatient (CLI) | payer OTHER, MEDICAID, SELFPAY | PROVIDERS: PCP Family Medicine; Referring Provider Nurse Practitioner Family; Visit Provider Nurse Practitioner Family | DX: R19.7 Diarrhea, unspecified (principal) | CPT/HCPCS: 87045; 87177; 87899 ==

== ENCOUNTER → 2022-10-10 12:19 | Outpatient (CLI) | payer OTHER, MEDICAID, SELFPAY ==
[2022-10-10 12:53] LABS: Hematocrit 43.1 % (36-46); Hemoglobin 14.9 g/dL (12.0-16.0); Mean Corpuscular HGB Conc 34.6 % (30-36); Mean Corpuscular Hemoglobin 32.9 PG (26-34); Platelet Count 284 X10^3/uL (150-400); Red Blood Cell Count 4.54 X10^6/uL (4.0-5.2); Red Cell Distribution Width 12.5 % (11.6-14.8); White Blood Cell Count 6.8 X10^3/uL (4.5-11.0)
[2022-10-10 13:31] LABS: Alanine Aminotransferase 112 IU/L (<35); Albumin 4.6 g/dL (3.5-5.0); Albumin Globulin Ratio 1.4 (1.0-2.8); Alkaline Phosphatase 106 U/L (38-126); Aspartate Aminotransferase 61 IU/L (14-36); BUN Creatinine Ratio 20.3 (6-22); Bilirubin Total 0.9 mg/dL (0.2-1.3); Blood Urea Nitrogen 13 mg/dL (7-17); Calcium 9.4 mg/dL (8.4-10.2); Carbon Dioxide 29 mmol/L (22-32); Chloride 104 mmol/L (98-107); Estimated Glomerular Filt Rate > 60 mL/min (>60); Globulin 3.3 g/dL (1.7-4.1); Glucose 109 mg/dL (70-100); HEMOLYSIS < 15 (0-50); Potassium 3.9 mmol/L (3.4-5.1); Sodium 139 mmol/L (137-145); Total Protein 7.9 g/dL (6.3-8.2)
[2022-10-10 13:47] LABS: Neutrophils Absolute Manual 3196 /uL (3000-5900); Total Cells Counted 100
[2022-10-10 13:48] LABS: RBC Morphology Normal Morphology
[2022-10-10 13:58] LABS: TSH w/ Reflex to FT4 2.37 uIU/mL (0.47-4.68)
[2022-10-10 14:12] LABS: HIV 1 & 2 Ab/Ag 4th Gen Combo NEGATIVE (NEGATIVE)
== END ==
PROVIDERS: PCP Family Medicine; Referring Provider Family Medicine; Visit Provider Family Medicine
DX: D69.6 Thrombocytopenia, unspecified (principal); R74.01 Elevation of levels of liver transaminase levels; B37.0 Candidal stomatitis; R19.7 Diarrhea, unspecified
CPT/HCPCS: 36415; 80053; 84443; 85025; 87389

== ENCOUNTER → 2022-10-19 12:31 | Outpatient (CLI) | payer OTHER, MEDICAID, SELFPAY ==
--- NOTE | 2022-10-19 12:32 | DI.US.S_ITS ---
PROCEDURE: US ABDOMEN COMPLETE INDICATIONS: transaminitis TECHNIQUE: Real-time scanning was performed of the abdominal and retroperitoneal organs, with image documentation. COMPARISON: [facility], CT, CT ABDOMEN PELVIS W CON, 08/12/2020, 15:07. FINDINGS: Liver: Liver is normal in size and demonstrates increased echotexture. Gallbladder: No gallstones. No gallbladder wall thickening, pericholecystic fluid or sonographic Watkins's sign. Biliary ducts: Intrahepatic bile ducts are non-dilated. Extrahepatic bile duct caliber measures 2.5 mm. Normal is 6-7 mm or less in diameter, or 10 mm or less post-cholecystectomy. Pancreas: Visualized portions of the pancreas are sonographically normal. Spleen: Spleen is normal in size and homogeneous in echotexture. Kidneys: Kidneys are normal in size and echotexture. Right kidney measures 10.3 cm long; left kidney measures 9.7 cm long. No hydronephrosis or nephrolithiasis. No solid masses. Aorta: Visualized aorta is normal in caliber at less than 3 cm. Iliacs: Proximal common iliac arteries are normal in caliber at less than 2.5 cm. IVC: Intrahepatic inferior vena cava is patent. Miscellaneous: No free abdominal fluid. IMPRESSION: 1. Diffusely increased hepatic echotexture. This finding is most likely secondary to hepatic fatty infiltration although other hepatocellular disease may have a similar appearance. Recommend clinical correlation. Dictated by: Baldomero Root M.D. on 10/20/2022 at 8:20 Approved by: Baldomero Root M.D. on 10/20/2022 at 8:21
== END ==
PROVIDERS: PCP Family Medicine; Referring Provider Family Medicine; Visit Provider Family Medicine
DX: R74.01 Elevation of levels of liver transaminase levels (principal)
CPT/HCPCS: 76700

== ENCOUNTER → 2023-04-26 15:08 | Outpatient (CLI) | payer OTHER, MEDICAID, SELFPAY ==
--- NOTE | 2023-04-26 15:09 | DI.MG.S_ITS ---
BILATERAL DIGITAL SCREENING MAMMOGRAM 3D/2D WITH CAD: 04/26/2023 CLINICAL: Routine screening. Comparison is made to exams dated: 05/26/2021 mammogram, 06/17/2018 mammogram, and 02/16/2020 mammogram - [facility]. There are scattered areas of fibroglandular density in both breasts (category b / 25%-50% glandular tissue). Current study was also evaluated with a Computer Aided Detection (CAD) system. No significant masses, calcifications, or other findings are seen in either breast. IMPRESSION: NEGATIVE There is no mammographic evidence of malignancy. A 1 year screening mammogram is recommended. Based on the Tyrer Cuzick model (a risk assessment model) the patient's lifetime risk is 4.7% and her 10 year risk is 1.8%. According to the ACR, ACS, and NCCN guidelines, an annual breast MRI exam along with mammogram is recommended if the patient's lifetime risk is 20% or greater. This exam was interpreted at Station ID: [id number]. NOTE: For mammograms, a report in lay terms will be sent to the patient. Approximately 15% of breast malignancies will not be visualized mammographically. In the management of a palpable breast mass, a negative mammogram must not discourage biopsy of a clinically suspicious lesion. Electronically Signed By: Jennifer Claros M.D., PH.D [email or web address]/darlyn:04/27/2023 00:04:30 letter sent: Normal Exam ACR BI-RADS Category 1: Negative [id number]
== END ==
PROVIDERS: PCP Family Medicine; Referring Provider Family Medicine; Visit Provider Family Medicine
DX: Z12.31 Encounter for screening mammogram for malignant neoplasm of breast (principal)
CPT/HCPCS: 77063; 77067

== ENCOUNTER → 2023-08-06 12:18 | Outpatient (CLI) | payer OTHER, MEDICAID, SELFPAY ==
[2023-08-06 14:02] LABS: Hemoglobin A1C% w Est Avg Glu 6.5 % (4.0-6.0)
[2023-08-06 14:21] LABS: Alanine Aminotransferase 40 IU/L (<35); Albumin 4.7 g/dL (3.5-5.0); Albumin Globulin Ratio 1.6 (1.0-2.8); Alkaline Phosphatase 95 U/L (38-126); Aspartate Aminotransferase 38 IU/L (14-36); BUN Creatinine Ratio 20.6 (6-22); Bilirubin Total 1.1 mg/dL (0.2-1.3); Blood Urea Nitrogen 13 mg/dL (7-17); Calcium 10.1 mg/dL (8.4-10.2); Carbon Dioxide 29 mmol/L (22-32); Chloride 106 mmol/L (98-107); Cholesterol 246 mg/dL (140-199); Estimated Glomerular Filt Rate > 60 mL/min (>60); Glucose 103 mg/dL (70-100); HDL Cholesterol 54 mg/dL (40-60); HEMOLYSIS < 15 (0-50); LDL Cholesterol Calculated 154 mg/dL (<100); Potassium 4.6 mmol/L (3.4-5.1); Sodium 140 mmol/L (137-145); Total Protein 7.7 g/dL (6.3-8.2); Triglycerides 189 mg/dL (35-150)
== END ==
LOC: LAB 12:20
PROVIDERS: PCP Family Medicine; Referring Provider Family Medicine; Visit Provider Family Medicine
DX: Z00.00 Encounter for general adult medical examination without abnormal findings (principal); I10 Essential (primary) hypertension; K76.0 Fatty (change of) liver, not elsewhere classified; R74.8 Abnormal levels of other serum enzymes; Z13.220 Encounter for screening for lipoid disorders; Z76.89 Persons encountering health services in other specified circumstances
CPT/HCPCS: 36415; 80053; 80061; 83036

== ENCOUNTER → 2023-08-27 10:10 | Outpatient (CLI) | payer OTHER, MEDICAID, SELFPAY ==
[2023-08-27 11:12] LABS: Gamma Glutamyl Transpeptidase 36 U/L (12-43)
[2023-08-27 11:34] LABS: Follicle Stimulating Hormone 36.1 mIU/mL
[2023-08-27 11:48] LABS: TSH w/ Reflex to FT4 1.81 uIU/mL (0.47-4.68)
[2023-08-27 11:50] LABS: Estradiol, Total 20.2 pg/mL
[2023-08-27 18:19] LABS: Ferritin 278 ng/mL (11-264)
[2023-08-28 03:03] LABS: HBsAg Screen Negative (Negative); Hepatitis A Antibody IgM Negative (Negative); Hepatitis B Core Antibody IgM Negative (Negative); Hepatitis C Antibody Non Reactive (Non Reactive)
[2023-08-31 22:25] LABS: Estrogen 49 pg/mL (40-244)
[2023-09-06 09:28] LABS: % Free Progesterone 2.4 % (.); Free Progesterone <0.24 ng/dL (.); Progesterone, Serum <10 ng/dL (.)
== END ==
PROVIDERS: PCP Family Medicine; Referring Provider Family Medicine; Visit Provider Family Medicine
DX: E65 Localized adiposity (principal); E78.00 Pure hypercholesterolemia, unspecified; E11.9 Type 2 diabetes mellitus without complications; K76.0 Fatty (change of) liver, not elsewhere classified; Z78.0 Asymptomatic menopausal state; E34.9 Endocrine disorder, unspecified; R74.8 Abnormal levels of other serum enzymes; R79.89 Other specified abnormal findings of blood chemistry
CPT/HCPCS: 36415; 80074; 82670; 82672; 82728; 82977; 83001; 84144; 84443; 84999

== ENCOUNTER → 2023-08-29 10:32 | Outpatient (CLI) | payer OTHER, MEDICAID, SELFPAY ==
[2023-09-04 14:50] LABS: Cortisol Fr ug/24hr urine 13 ug/24 hr (6-42); Cortisol, Free, Urine 9 ug/L (Undefined)
== END ==
PROVIDERS: PCP Family Medicine; Referring Provider Family Medicine; Visit Provider Family Medicine
DX: E65 Localized adiposity (principal); E78.00 Pure hypercholesterolemia, unspecified; E11.9 Type 2 diabetes mellitus without complications; K76.0 Fatty (change of) liver, not elsewhere classified; Z78.0 Asymptomatic menopausal state; E34.9 Endocrine disorder, unspecified
CPT/HCPCS: 82530

== ENCOUNTER → 2024-01-03 16:56 | Outpatient (CLI) | payer OTHER, MEDICAID, SELFPAY ==
--- NOTE | 2024-01-03 16:58 | DI.RAD.S_ITS ---
PROCEDURE: XR CHEST 2V INDICATIONS: breathing concerns/ongoing cough; hx of COVID; int travel TECHNIQUE: 2 views of the chest were acquired. COMPARISON: [facility], , XR CHEST 1V, 08/12/2020, 13:26. FINDINGS: Surgical changes and devices: None. Lungs and pleura: Lungs are clear. No pleural effusions or pneumothorax. Mediastinum: Mediastinal contours are normal. Heart size is normal. Bones and chest wall: No suspicious bony abnormalities. Soft tissues appear unremarkable. IMPRESSION: No acute cardiopulmonary abnormality is seen. Dictated by: Rafaela Domínguez M.D. on 01/04/2024 at 21:58 Approved by: Rafaela Domínguez M.D. on 01/04/2024 at 21:59
--- NOTE | 2024-01-03 16:58 | DI.RAD.S_ITS ---
PROCEDURE: XR HIP W PEL IF DONE LT 2V INDICATIONS: chronic left hip pain TECHNIQUE: AP pelvis with lateral view(s) of the left hip(s). COMPARISON: None. FINDINGS: Bones: No fractures or dislocations. Pelvic ring appears intact. No suspicious bony lesions. Soft tissues: The visualized bowel gas pattern is normal. No suspicious soft tissue calcifications. IMPRESSION: No acute bony abnormality. Dictated by: Rafaela Domínguez M.D. on 01/04/2024 at 21:59 Approved by: Rafaela Domínguez M.D. on 01/04/2024 at 22:00
== END ==
LOC: RAD 16:58
PROVIDERS: PCP Family Medicine; Referring Provider Family Medicine; Visit Provider Family Medicine
DX: R05.3 Chronic cough (principal); M25.552 Pain in left hip; G89.29 Other chronic pain; Z86.16 Personal history of COVID-19; Z78.9 Other specified health status
CPT/HCPCS: 71046; 73502

== ENCOUNTER → 2024-04-29 15:34 | Outpatient (CLI) | payer OTHER, MEDICAID, SELFPAY ==
[2024-04-29 18:46] LABS: Lipase 54 U/L (23-300)
== END ==
PROVIDERS: PCP Family Medicine; Referring Provider Family Medicine; Visit Provider Family Medicine
DX: R19.5 Other fecal abnormalities (principal); K76.0 Fatty (change of) liver, not elsewhere classified; E11.9 Type 2 diabetes mellitus without complications
CPT/HCPCS: 36415; 82784; 83036; 83516; 83690

== ENCOUNTER → 2024-05-01 13:42 | Outpatient (CLI) | payer OTHER, SELFPAY ==
[2024-05-05 16:08] LABS: H. Pylori Antigen Stool Negative (Negative)
[2024-05-07 13:09] LABS: Calprotectin, Stool 23 ug/g (0-120)
[2024-05-08 19:36] LABS: Lactoferrin, Fecal Quant 6.17 ug/mL(g) (0.00-7.24)
== END ==
PROVIDERS: PCP Family Medicine; Referring Provider Family Medicine; Visit Provider Family Medicine
DX: K76.0 Fatty (change of) liver, not elsewhere classified (principal); Z86.19 Personal history of other infectious and parasitic diseases; R19.5 Other fecal abnormalities; R74.8 Abnormal levels of other serum enzymes
CPT/HCPCS: 83631; 83993; 87329; 87338

== ENCOUNTER → 2024-06-04 12:26 | Outpatient (CLI) | payer OTHER, SELFPAY ==
--- NOTE | 2024-06-04 12:29 | DI.MG.S_ITS ---
BILATERAL DIGITAL SCREENING MAMMOGRAM 3D/2D WITH CAD: 06/04/2024 CLINICAL: Routine screening. Comparison is made to exams dated: 04/26/2023 mammogram, 05/26/2021 mammogram, and 02/16/2020 mammogram - [facility]. There are scattered areas of fibroglandular density (category b / 25%-50% glandular tissue). Current study was also evaluated with a Computer Aided Detection (CAD) system. No significant masses, calcifications, or other findings are seen in either breast. There has been no significant interval change. IMPRESSION: NEGATIVE There is no mammographic evidence of malignancy. A 1 year screening mammogram is recommended. Based on the Tyrer Cuzick model (a risk assessment model) the patient's lifetime risk is 4.6% and her 10 year risk is 1.8%. According to the ACR, ACS, and NCCN guidelines, an annual breast MRI exam along with mammogram is recommended if the patient's lifetime risk is 20% or greater. This exam was interpreted at Station ID: [id number]. NOTE: For mammograms, a report in lay terms will be sent to the patient. Approximately 15% of breast malignancies will not be visualized mammographically. In the management of a palpable breast mass, a negative mammogram must not discourage biopsy of a clinically suspicious lesion. Electronically Signed By: Rafaela benjamin/darlyn:06/04/2024 16:21:49 letter sent: Normal Exam ACR BI-RADS Category 1: Negative
[2024-06-04 13:07] LABS: Add Manual Diff / Slide Review NO; Basophils Absolute Auto 100 /uL (0-100); Basophils Percent Auto 1.3 % (0-2); Eosinophils Absolute Auto 100 /uL (0-450); Eosinophils Percent Auto 2.5 % (2-4); Hemoglobin 15.4 g/dL (12.0-16.0); Lymphocytes Absolute Auto 1900 /uL (1100-4500); Mean Corpuscular HGB Conc 34.1 % (30-36); Mean Corpuscular Hemoglobin 32.8 PG (26-34); Mean Corpuscular Volume 96.1 fL (80-100); Monocytes Absolute Auto 300 /uL (0-900); Monocytes Percent Auto 5.3 % (3-14); Neutrophils Absolute Auto 3400 /uL (1500-7000); Neutrophils Percent Auto 57.9 % (50-75); Platelet Count 251 X10^3/uL (150-400); Red Blood Cell Count 4.68 X10^6/uL (4.0-5.2); Red Cell Distribution Width 12.1 % (11.6-14.8); White Blood Cell Count 5.9 X10^3/uL (4.5-11.0)
[2024-06-04 13:16] LABS: Prothrombin Time 11.8 SECONDS (9.4-12.5)
[2024-06-04 13:21] LABS: Alanine Aminotransferase 24 IU/L (<35); Albumin 4.9 g/dL (3.5-5.0); Albumin Globulin Ratio 1.6 (1.0-2.8); Alkaline Phosphatase 85 U/L (38-126); Aspartate Aminotransferase 30 IU/L (14-36); BUN Creatinine Ratio 18.3 (6-22); Bilirubin Total 0.8 mg/dL (0.2-1.3); Blood Urea Nitrogen 13 mg/dL (7-17); Calcium 9.8 mg/dL (8.4-10.2); Carbon Dioxide 27 mmol/L (22-32); Chloride 105 mmol/L (98-107); Estimated Glomerular Filt Rate > 60 mL/min (>60); Globulin 3.1 g/dL (1.7-4.1); Glucose 109 mg/dL (80-110); HEMOLYSIS < 15 (0-50); Iron 152 ug/dL (37-170); Potassium 4.1 mmol/L (3.4-5.1); Sodium 139 mmol/L (137-145)
[2024-06-04 13:31] LABS: Percent Iron Saturation 53 % (15-50); Total Iron Binding Capacity 285 ug/dL (265-497); Transferrin 290 mg/dL (206-381)
[2024-06-04 13:56] LABS: Ferritin 153 ng/mL (11-264)
== END ==
PROVIDERS: PCP Family Medicine; Referring Provider Internal Medicine Gastroenterology; Visit Provider Internal Medicine Gastroenterology
DX: R74.8 Abnormal levels of other serum enzymes (principal)
CPT/HCPCS: 36415; 77063; 77067; 80053; 82728; 83540; 83550; 83993; 85025; 85610

== ENCOUNTER → 2024-07-25 14:30 | Outpatient (CLI) | payer OTHER, SELFPAY | LOC: LAB 14:31 | PROVIDERS: PCP Family Medicine; Referring Provider Family Medicine; Visit Provider Family Medicine | DX: N95.1 Menopausal and female climacteric states (principal); Z79.890 Hormone replacement therapy | CPT/HCPCS: 36415; 82672; 84144; 84999 ==

== ENCOUNTER → 2025-03-11 10:39 | Outpatient (CLI) | payer OTHER, SELFPAY ==
[2025-03-11 11:06] LABS: Hemoglobin A1C% w Est Avg Glu 5.7 % (4.0-6.0)
== END ==
PROVIDERS: PCP Family Medicine; Referring Provider Family Medicine; Visit Provider Family Medicine
DX: K76.0 Fatty (change of) liver, not elsewhere classified (principal); E11.9 Type 2 diabetes mellitus without complications; Z68.26 Body mass index [BMI] 26.0-26.9, adult
CPT/HCPCS: 36415; 83036

== ENCOUNTER → 2025-03-24 11:44 | Outpatient (CLI) | payer OTHER, SELFPAY ==
--- NOTE | 2025-03-24 11:45 | DI.MRI.S_ITS ---
PROCEDURE: MR KNEE LT WO CON INDICATIONS: Left knee pain TECHNIQUE: Noncontrast sagittal PD fast spin echo and T2 fast spin echo with fat saturation, sagittal 3-D FLASH with fat saturation; coronal T1 spin echo and PD fast spin echo with fat saturation, and axial PD fast spin echo with fat saturation through the knee. COMPARISON: None. FINDINGS: Image quality: Excellent Menisci: In the medial meniscus, there is a complex tear of the meniscus body. No significant extrusion of the medial meniscus body. There is a punctate parameniscal cyst about the meniscus body and posterior horn junction (11:4). The lateral meniscus is unremarkable. Cruciate ligaments: The anterior and posterior cruciate ligaments appear intact. Medial structures: The medial collateral ligament appears intact. The posterior oblique ligament, semimembranosus tendon insertions, oblique popliteal ligament, and meniscocapsular junction appear intact. Visualized portions of the pes anserinus tendons appear normal. No abnormal bursal fluid. Lateral structures: The lateral collateral ligament, long and short heads of the biceps femoris tendon appear intact. The popliteus tendon appears normal; the popliteofibular ligament appears intact. The posterosuperior and anteroinferior popliteomeniscal fascicles appear intact. The arcuate and fabellofibular ligaments appear intact, on either side of the lateral inferior geniculate artery. Iliotibial band appears normal. Anterior structures: The quadriceps tendon is unremarkable. Susceptibility artifact about the proximal patellar tendon, nonspecific and may be postprocedural. Mild tendinosis of the proximal patellar tendon. Marked superolateral Hoffa's fat pad edema, raising concern for patellar maltracking. The medial and lateral patellofemoral ligaments are intact. Alignment of the patellofemoral compartment is anatomic. Bones and cartilage: The cartilage of the mediolateral compartments are grossly well maintained. There is mild subchondral marrow edema of the peripheral aspect of the medial tibial plateau, favor reactive. No acute fracture. Cartilage of the patellofemoral compartment is well maintained. Joint space: Trace knee effusion. Trace popliteal cyst. Popliteal vasculature is unremarkable. No intra-articular body. Small ganglion cyst about the mid semimembranosus tendon, measuring 1.3 cm. IMPRESSION: 1. Complex tear of the medial meniscus body with punctate parameniscal cyst. Subjacent mild reactive marrow edema of the medial tibial plateau. 2. Findings suggestive of patellar maltracking. 3. Small ganglion cyst about the mid semimembranosus tendon. Dictated by: Rain Chao M.D. on 03/24/2025 at 16:26 Approved by: Rain Chao M.D. on 03/24/2025 at 16:42
== END ==
LOC: MRI 11:44
PROVIDERS: PCP Family Medicine; Referring Provider Family Medicine; Visit Provider Family Medicine
DX: S83.232A Complex tear of medial meniscus, current injury, left knee, initial encounter (principal); M67.462 Ganglion, left knee; M25.562 Pain in left knee; M25.369 Other instability, unspecified knee
CPT/HCPCS: 73721

== ENCOUNTER → 2025-05-18 10:11 | Outpatient (CLI) | payer OTHER, SELFPAY ==
[2025-05-18 11:34] LABS: Add Manual Diff / Slide Review NO; Hematocrit 44.0 % (36-46); Hemoglobin 15.4 g/dL (12.0-16.0); Lymphocytes Absolute Auto 1200 /uL (1100-4500); Mean Corpuscular HGB Conc 35.1 % (30-36); Mean Corpuscular Hemoglobin 33.0 PG (26-34); Mean Corpuscular Volume 94.2 fL (80-100); Platelet Count 237 X10^3/uL (150-400)
[2025-05-18 11:49] LABS: HEMOLYSIS < 15 (0-50); Iron 160 ug/dL (37-170)
[2025-05-18 11:57] LABS: Alanine Aminotransferase 21 IU/L (<35); Albumin 4.9 g/dL (3.5-5.0); Albumin Globulin Ratio 1.8 (1.0-2.8); Alkaline Phosphatase 71 U/L (38-126); Blood Urea Nitrogen 17 mg/dL (7-17); Calcium 9.9 mg/dL (8.4-10.2); Carbon Dioxide 26 mmol/L (22-32); Chloride 106 mmol/L (98-107); Cholesterol 292 mg/dL (140-199); Estimated Glomerular Filt Rate > 60 mL/min (>60); Globulin 2.8 g/dL (1.7-4.1); Glucose 95 mg/dL (70-99); HDL Cholesterol 56 mg/dL (40-60); HEMOLYSIS < 15 (0-50); Potassium 4.3 mmol/L (3.4-5.1); Sodium 139 mmol/L (137-145); Total Protein 7.7 g/dL (6.3-8.2); Triglycerides 176 mg/dL (35-150)
[2025-05-18 11:58] LABS: Hemoglobin A1C% w Est Avg Glu 5.6 % (4.0-6.0)
[2025-05-18 12:02] LABS: Percent Iron Saturation 57 % (15-50); Total Iron Binding Capacity 279 ug/dL (265-497); Transferrin 259 mg/dL (206-381)
[2025-05-18 12:13] LABS: Follicle Stimulating Hormone 34.2 mIU/mL
[2025-05-18 12:14] LABS: Vitamin D 25 Hydroxy (D3) 33.2 ng/mL (30.0-100.0)
[2025-05-18 12:18] LABS: Thyroid Stimulating Hormone 2.16 uIU/mL (0.47-4.68)
== END ==
PROVIDERS: PCP Family Medicine; Referring Provider Family Medicine; Visit Provider Family Medicine
DX: Z13.29 Encounter for screening for other suspected endocrine disorder (principal); G89.29 Other chronic pain; E11.9 Type 2 diabetes mellitus without complications; I10 Essential (primary) hypertension; R53.82 Chronic fatigue, unspecified; K76.0 Fatty (change of) liver, not elsewhere classified; N95.1 Menopausal and female climacteric states; Z79.890 Hormone replacement therapy
CPT/HCPCS: 36415; 80053; 80061; 82306; 82672; 83001; 83036; 83540; 83550; 84144; 84443; 84999; 85025